=== PATIENT | male | born 2000 | race Caucasian/White ===

== ENCOUNTER 2023-09-15 12:38 | Emergency (ER) | payer BC, OTHER ==
[2023-09-15] MEDS ORDERED: Ketorolac Tromethamine 30 MG (1 mL) VIAL ONE (12:44)
[2023-09-15] MEDS ORDERED: Acetaminophen 500 MG TAB ONE (12:44)
== END 2023-09-15 13:37 | disposition home or self-care (01) ==
LOC: ERS 12:38
DX: H60.91 Unspecified otitis externa, right ear (principal)
CPT/HCPCS: 96372; 99283; J1885